=== PATIENT | female | born 1975 | race Caucasian/White ===

== ENCOUNTER → 2016-12-02 | Outpatient (CLI) | payer OTHER ==
[2016-12-02 11:10] LABS: Basophils # (A) 0.1 k/uL (0-0.2); Basophils % (A) 1 %; CH 32.6; CHCM 33.7; Eosinophils # (A) 0.2 k/uL (0-0.7); Eosinophils % (A) 3 %; HCT 42.8 % (34.0-46.0); HDW 2.39; HGB 14.2 gm/dL (11.4-16.0); Luc # (Auto) 0.11; Luc % (Auto) 2; Lymphocytes # (A) 1.8 k/uL (1.0-4.8); Lymphocytes % (A) 29 %; MCH 32.2 pg (25.0-35.0); MCHC 33.1 g/dL (31.0-37.0); MCV 97.2 fL (80.0-100.0); Mean Platelet Volume 6.7; Monocytes # (A) 0.4 k/uL (0-1.0); Monocytes % (A) 6 %; Neutrophils # (A) 3.7 k/uL (1.3-7.7); Neutrophils % (A) 59 %; RDW 13.7 % (11.5-15.5); WBC 6.3 k/uL (3.8-10.6); WBC (Perox) 6.56
[2016-12-02 11:25] LABS: Anion Gap 11 mmol/L; Blood Urea Nitrogen 6 mg/dL (7-17); Carbon Dioxide 22 mmol/L (22-30); Chloride 110 mmol/L (98-107); Glucose 96 mg/dL (74-99); Non-African American GFR(MDRD) >60 (>60 ml/min/1.73 sqM); Sodium 143 mmol/L (137-145)
== END | disposition home or self-care (01) ==
LOC: LABWHC1 10:24
PROVIDERS: ATTEND Orthopaedic Surgery
DX: Z01.812 Encounter for preprocedural laboratory examination (principal); D64.9 Anemia, unspecified
CPT/HCPCS: 36415; 80048; 85025

== ENCOUNTER 2017-03-23 16:37 | Emergency (ER) | payer OTHER ==
[2017-03-23 16:46] VITALS: BP 118/62; PULSE 79; RESP 20; TEMP 97.8
--- NOTE | 2017-03-23 16:57 | ED ---
ENT HPI - General Chief complaint: Dental/Oral Stated complaint: Oral Pain Time Seen by Provider: 03/23/17 16:54 Source: patient, RN notes reviewed Mode of arrival: ambulatory Limitations: no limitations - History of Present Illness Initial comments: 42-year-old female presents emergency Department chief complaint right lower dental pain. She states she has smuggling that she's been worse over the last few days. She states she noticed some swelling along her gumline. Patient denies fever, chills. She states that she has appointment with the dental clinic next month but states that she cannot tolerate the pain at this time. Patient denies any headache or dizziness. Denies any ear pain, sore throat. - Related Data Previous Rx's Medication Instructions Recorded Acetaminophen-Codeine 300-30mg 1 tab PO Q4H PRN #20 tablet 03/23/17 [Tylenol #3] Ibuprofen [Motrin] 600 mg PO Q8HR PRN #30 tab 03/23/17 Penicillin V Potassium [Pen Vee K] 500 mg PO QID #40 tab 03/23/17 Allergies Allergy/AdvReac Type Severity Reaction Status Date / Time duloxetine [From Cymbalta] AdvReac Abdominal Verified 03/23/17 16:53 Pain Review of Systems ROS Statement: Those systems with pertinent positive or pertinent negative responses have been documented in the HPI. ROS Other: All systems not noted in ROS Statement are negative. Past Medical History Past Medical History: Asthma Additional Past Medical History / Comment(s): back pain History of Any Multi-Drug Resistant Organisms: None Reported Past Surgical History: Section, Orthopedic Surgery Additional Past Surgical History / Comment(s): left knee, left shoulder Past Psychological History: No Psychological Hx Reported Smoking Status: Current every day smoker Past Alcohol Use History: None Reported Past Drug Use History: None Reported General Exam Limitations: no limitations General appearance: alert, in no apparent distress Head exam: Present: atraumatic, normocephalic, normal inspection Eye exam: Present: normal appearance, PERRL, EOMI. Absent: scleral icterus, conjunctival injection, periorbital swelling ENT exam: Present: mucous membranes moist, TM's normal bilaterally, normal external ear exam. Absent: normal oropharynx (Edentulous, mild swelling right lower gumline) Neck exam: Present: normal inspection, full ROM. Absent: tenderness, meningismus, lymphadenopathy Respiratory exam: Present: normal lung sounds bilaterally. Absent: respiratory distress, wheezes, rales, rhonchi, stridor Cardiovascular Exam: Present: regular rate, normal rhythm, normal heart sounds. Absent: systolic murmur, diastolic murmur, rubs, gallop, clicks Neurological exam: Present: alert, oriented X3, CN II-XII intact Skin exam: Present: warm, dry, intact, normal color. Absent: rash Course Vital Signs 03/23/17 16:44 Temperature 97.8 F Pulse Rate 79 Respiratory 20 Rate Blood Pressure 118/62 O2 Sat by Pulse 99 Oximetry Medical Decision Making - Medical Decision Making 42-year-old female presented for dental pain. Patient given pain medication, antibiotics she has a very small early abscess on drainable at this time. Patient follow-up with dental clinic and return parameters were discussed. Disposition Clinical Impression: Dental abscess, Toothache Disposition: HOME SELF-CARE Condition: Stable Instructions: Dental Abscess (ED) Additional Instructions: Please return to the Emergency Department if symptoms worsen or any other concerns. Prescriptions: Acetaminophen-Codeine 300-30mg [Tylenol #3] 1 tab PO Q4H PRN #20 tablet PRN Reason: pain Ibuprofen [Motrin] 600 mg PO Q8HR PRN #30 tab PRN Reason: Pain Penicillin V Potassium [Pen Vee K] 500 mg PO QID #40 tab Referrals: Junito Onofre MD [Primary Care Provider] - 1-2 days Time of Disposition: 16:56
== END 2017-03-23 17:12 | disposition home or self-care (01) ==
LOC: EC 16:37
DX: K04.7 Periapical abscess without sinus (principal); F17.200 Nicotine dependence, unspecified, uncomplicated; Z88.8 Allergy status to other drugs, medicaments and biological substances
CPT/HCPCS: 99282

== ENCOUNTER → 2017-05-21 | Outpatient (CLI) | payer OTHER ==
--- NOTE | 2017-05-21 23:33 | MR ---
EXAMINATION TYPE: MR lumbar spine wo con DATE OF EXAM: 05/21/2017 COMPARISON: 02/21/2015 HISTORY: low back pain x4 years TECHNIQUE: Multiplanar, multisequence images of the lumbar spine were acquired. The vertebra have normal alignment. There is some degenerative disc space narrowing at L4-5 and L5-S1 . There is posterior disc herniation at L3-4 and L4-5 in the spinal canal. There is developmentally a dequate spinal canal and no significant spinal stenosis. The visualized sacroiliac joints appear norm al. There is no paraspinal mass. There is no compression fracture. The lumbar neural foramina are genevieve rly well-maintained. IMPRESSION: Mild posterior disc herniations at L3-4 and L4-5. L4-5 herniation is smaller than old exam consistent with desiccation. L3-4 is unchanged. No spinal stenosis.
== END | disposition home or self-care (01) ==
LOC: RADMRIMAIN 20:20
PROVIDERS: ATTEND Psychiatry & Neurology Neurology
DX: M51.26 Other intervertebral disc displacement, lumbar region (principal)
CPT/HCPCS: 72148

== ENCOUNTER → 2017-06-25 | Outpatient (CLI) | payer OTHER ==
[2017-06-25 12:45] LABS: CH 32.7; CHCM 34.1; HCT 43.1 % (34.0-46.0); HDW 2.54; HGB 14.6 gm/dL (11.4-16.0); MCH 32.6 pg (25.0-35.0); MCHC 33.8 g/dL (31.0-37.0); MCV 96.3 fL (80.0-100.0); Mean Platelet Volume 7.2; RBC 4.47 m/uL (3.80-5.40); RDW 13.7 % (11.5-15.5); WBC 6.8 k/uL (3.8-10.6)
[2017-06-25 12:58] LABS: ALT 23 U/L (9-52); AST 14 U/L (14-36); Alkaline Phosphatase 63 U/L (38-126); Anion Gap 11 mmol/L; Blood Urea Nitrogen 9 mg/dL (7-17); Calcium 9.2 mg/dL (8.4-10.2); Carbon Dioxide 19 mmol/L (22-30); Chloride 113 mmol/L (98-107); Glucose 90 mg/dL (74-99); Non-African American GFR(MDRD) >60 (>60 ml/min/1.73 sqM); Potassium 3.7 mmol/L (3.5-5.1); Sodium 143 mmol/L (137-145); Total Bilirubin 0.4 mg/dL (0.2-1.3)
== END | disposition home or self-care (01) ==
LOC: LABWHC1 12:14
PROVIDERS: ATTEND Internal Medicine
DX: R12 Heartburn (principal); E04.2 Nontoxic multinodular goiter
CPT/HCPCS: 36415; 80053; 84443; 85027

== ENCOUNTER 2019-06-11 18:46 | Emergency (ER) | payer OTHER ==
[2019-06-11] MEDS ORDERED: IPRATROPIUM-ALBUTEROL 3 ML NEB INHALATION STA ×2 (20:17→22:18)
[2019-06-11] MEDS ORDERED: MAGNESIUM SULFATE-D5W PMX 1 GM in DEXTROSE/WATER 1 100ML.BAG IVPB ONE (20:20)
[2019-06-11] MEDS ORDERED: methylPREDNISolone SOD SUCCI 125 MG/2 ML VIAL IV STA (20:20)
[2019-06-11 21:11] LABS: Basophils # (A) 0.1 k/uL (0-0.2); Basophils % (A) 1 %; Eosinophils # (A) 0.9 k/uL (0-0.7); Eosinophils % (A) 9 %; HCT 46.5 % (34.0-46.0); HGB 15.9 gm/dL (11.4-16.0); Lymphocytes # (A) 2.7 k/uL (1.0-4.8); Lymphocytes % (A) 27 %; MCH 31.6 pg (25.0-35.0); MCHC 34.2 g/dL (31.0-37.0); MCV 92.5 fL (80.0-100.0); Mean Platelet Volume 6.8; Monocytes # (A) 0.6 k/uL (0-1.0); Monocytes % (A) 6 %; Neutrophils # (A) 5.5 k/uL (1.3-7.7); Neutrophils % (A) 55 %; Platelet Count 349 k/uL (150-450); RBC 5.03 m/uL (3.80-5.40); RDW 15.7 % (11.5-15.5)
[2019-06-11 21:19] LABS: ALT 15 U/L (9-52); AST 21 U/L (14-36); African American GFR (CKD) >90 (>60 ml/min/1.73 sqM); Albumin 4.3 g/dL (3.5-5.0); Alkaline Phosphatase 82 U/L (38-126); Anion Gap 10 mmol/L; Blood Urea Nitrogen 9 mg/dL (7-17); Calcium 9.3 mg/dL (8.4-10.2); Carbon Dioxide 22 mmol/L (22-30); Chloride 108 mmol/L (98-107); Glucose 81 mg/dL (74-99); Sodium 140 mmol/L (137-145); Total Bilirubin 0.2 mg/dL (0.2-1.3); Total Protein 7.5 g/dL (6.3-8.2)
--- NOTE | 2019-06-11 21:52 | XR ---
EXAMINATION TYPE: XR chest 2V DATE OF EXAM: 06/11/2019 COMPARISON: 08/23/2015 HISTORY: 44-year-old female difficulty breathing TECHNIQUE: PA and lateral views FINDINGS: The heart is normal size. Aorta and bony vasculature within normal limits. Strandy atelectasis left b ase. Interstitial prominence and streaky perihilar densities. No consolidation or pleural effusion se en. IMPRESSION: Correlate for possible bronchitis or asthma. Strandy left basilar atelectasis.
--- NOTE | 2019-06-11 22:24 | XR ---
EXAM: XR Right Wrist Complete, 3 or More Views CLINICAL HISTORY: ITS.REASON XR Reason: Pain TECHNIQUE: Frontal, lateral and oblique views of the right wrist. COMPARISON: No relevant prior studies available. FINDINGS: Bones/joints: Questionable cortical disruption of the ulnar styloid may suggest nondisplaced fracture.. Soft tissues: Unremarkable. No radiopaque foreign body. IMPRESSION: Questionable cortical disruption of the ulnar styloid may suggest nondisplaced fracture. Please correlate with mechanism of injury and location of pain
--- NOTE | 2019-06-11 23:10 | ED ---
SOB HPI - General Chief Complaint: Shortness of Breath Stated Complaint: Asthma Issues & Wrist Pain Time Seen by Provider: 06/11/19 19:00 Source: patient Mode of arrival: ambulatory Limitations: no limitations - History of Present Illness Initial Comments: The patient is a 44-year-old female with past history of asthma who presents to the emergency room with reported asthma exacerbation. She reports that she did have a roommate move into her home who wears heavy colognes. She also states that her boyfriend has been spraying insecticide inside their house. She has been using her nebulizer as directed however it is not helping her symptoms. Reports that she no longer has an inhaler at home. She has never been intubated for breathing. Never required hospital admission. She admits to a mild nonproductive cough. No fevers or chills. Denies hemoptysis. Denies any chest pain. The patient is unsure of status. She also reports to right wrist pain. States that she's previously fractured the wrist however over the past 2 weeks she's had worsening pain. States she has pain with supination or pronation. Denies any redness or swelling to the extremity. Denies any numbness or tingling. The patient did go into [facility]. She had an x-ray performed which was negative. The patient is still concerned because of her pain and therefore is requesting another x-ray. There are no other alleviating, precipitating or modifying factors - Related Data Home Medications Medication Instructions Recorded Confirmed ALPRAZolam [Xanax] 1 mg PO TID PRN 03/23/17 06/11/19 ARIPiprazole [Abilify] 10 mg PO DAILY 03/23/17 06/11/19 Methylphenidate HCl [Ritalin] 20 mg PO TID 03/23/17 06/11/19 QUEtiapine FUMARATE [SEROquel] 400 mg PO HS 03/23/17 06/11/19 lamoTRIgine [LaMICtal] 150 mg PO BID 06/11/19 06/11/19 Previous Rx's Medication Instructions Recorded Albuterol Nebulized [Ventolin 2.5 mg INHALATION Q4H PRN #25 nebu 06/11/19 Nebulized] Albuterol Sulfate [Proair Hfa] 1 - 2 puff INHALATION Q4HR PRN #1 06/11/19 inhaler predniSONE 20 mg PO BID #10 tab 06/11/19 Allergies Allergy/AdvReac Type Severity Reaction Status Date / Time duloxetine [From Cymbalta] AdvReac Abdominal Verified 06/11/19 19:52 Pain Review of Systems ROS Statement: Those systems with pertinent positive or pertinent negative responses have been documented in the HPI. ROS Other: All systems not noted in ROS Statement are negative. Past Medical History Past Medical History: Asthma Additional Past Medical History / Comment(s): back pain History of Any Multi-Drug Resistant Organisms: None Reported Past Surgical History: Section, Orthopedic Surgery Additional Past Surgical History / Comment(s): left knee, left shoulder Past Psychological History: No Psychological Hx Reported Smoking Status: Current every day smoker Past Alcohol Use History: None Reported Past Drug Use History: None Reported General Exam Limitations: no limitations General appearance: alert, in no apparent distress Head exam: Present: atraumatic, normocephalic, normal inspection Eye exam: Present: normal appearance, PERRL, EOMI. Absent: scleral icterus, conjunctival injection, periorbital swelling ENT exam: Present: normal exam, mucous membranes moist Neck exam: Present: normal inspection. Absent: tenderness, meningismus, lymphadenopathy Respiratory exam: Present: wheezes (mild wheeze at the bases). Absent: respiratory distress, rales, rhonchi, stridor, accessory muscle use, decreased breath sounds Cardiovascular Exam: Present: regular rate, normal rhythm, normal heart sounds. Absent: systolic murmur, diastolic murmur, rubs, gallop, clicks GI/Abdominal exam: Present: soft, normal bowel sounds. Absent: distended, tenderness, guarding, rebound, rigid Extremities exam: Present: tenderness (right ulnar surface. Intact median, radial, ulnar and AIN nerve innervated muscle groups. 2+ radial and ulnar pulses. Compartments are soft. Cap refill <3 seconds), normal capillary refill. Absent: pedal edema, joint swelling, calf tenderness Back exam: Present: normal inspection Neurological exam: Present: alert, oriented X3, CN II-XII intact Psychiatric exam: Present: normal affect, normal mood Skin exam: Present: warm, dry, intact, normal color. Absent: rash Course Vital Signs 06/11/19 06/11/19 06/11/19 18:59 20:33 20:39 Temperature 97.7 F Pulse Rate 88 88 88 Respiratory 22 Rate Blood Pressure 110/72 O2 Sat by Pulse 99 Oximetry 06/11/19 06/11/19 06/11/19 21:03 22:00 22:16 Temperature 97.9 F Pulse Rate 77 88 87 Respiratory 18 19 25 H Rate Blood Pressure 113/79 107/78 O2 Sat by Pulse 96 98 95 Oximetry 06/11/19 06/11/19 06/11/19 22:27 22:35 23:23 Temperature 97.7 F Pulse Rate 75 80 92 Respiratory 20 Rate Blood Pressure 110/88 O2 Sat by Pulse 95 Oximetry Medical Decision Making - Medical Decision Making Upon arrival the patient is placed into room 19. She is hooked up to continuous pulse ox and cardiac monitoring. The patient demonstrates wheezing at the lung bases. Respiratory was called and provided the patient with a DuoNeb breathing treatment. I recommended laboratory studies and a chest x-ray. The patient was reevaluated and still continues to have tachypnea. Because of this I did provide the patient with an additional DuoNeb breathing treatment. Peripheral IV had been established the patient was given 125 mg of Solu-Medrol and 1 g of magnesium. The patient does go over for an x-ray of the right wrist. He does demonstrate cortical disruption of the ulnar styloid nondisplaced fracture. As the patient is tender, I did recommend splint placement. The patient did agree to this. She was placed in an ulnar gutter splint. I did recommend that she follow up with Dr. Wolfe for reevaluation. She is to continue to rest, ice and elevate the extremity. No weightbearing. The patient does feel improved with her respirations at this time. She feels comfortable to go home. She will be given a prescription for albuterol for her nebulizer. She is also given a perception for an albuterol inhaler. She will be placed on steroids for the next 5 days. She will follow-up with her primary care doctor in 2-4 days. If she has any new or worsening symptoms she should return to the emergency room. She was discharged home in stable condition - Lab Data Result diagrams: 06/11/19 21:02 06/11/19 21:02 Lab Results 06/11/19 06/11/19 06/11/19 Range/Units 20:55 21:02 21:02 WBC 10.0 (3.8-10.6) k/uL RBC 5.03 (3.80-5.40) m/uL Hgb 15.9 (11.4-16.0) gm/dL Hct 46.5 H (34.0-46.0) % MCV 92.5 (80.0-100.0) fL MCH 31.6 (25.0-35.0) pg MCHC 34.2 (31.0-37.0) g/dL RDW 15.7 H (11.5-15.5) % Plt Count 349 (150-450) k/uL Neutrophils % 55 % Lymphocytes % 27 % Monocytes % 6 % Eosinophils % 9 % Basophils % 1 % Neutrophils # 5.5 (1.3-7.7) k/uL Lymphocytes # 2.7 (1.0-4.8) k/uL Monocytes # 0.6 (0-1.0) k/uL Eosinophils # 0.9 H (0-0.7) k/uL Basophils # 0.1 (0-0.2) k/uL Sodium 140 (137-145) mmol/L Potassium 4.0 (3.5-5.1) mmol/L Chloride 108 H (98-107) mmol/L Carbon Dioxide 22 (22-30) mmol/L Anion Gap 10 mmol/L BUN 9 (7-17) mg/dL Creatinine 0.73 (0.52-1.04) mg/dL Est GFR (CKD-EPI)AfAm >90 (>60 ml/min/1.73 sqM) Est GFR (CKD-EPI)NonAf >90 (>60 ml/min/1.73 sqM) Glucose 81 (74-99) mg/dL Calcium 9.3 (8.4-10.2) mg/dL Total Bilirubin 0.2 (0.2-1.3) mg/dL AST 21 (14-36) U/L ALT 15 (9-52) U/L Alkaline Phosphatase 82 (38-126) U/L Total Protein 7.5 (6.3-8.2) g/dL Albumin 4.3 (3.5-5.0) g/dL Urine HCG, Qual Not Detected (Not Detectd) - EKG Data EKG Comments: EKG demonstrates a normal sinus rhythm with a ventricular rate of 74. AL interval 116. QRS 78. QTC of 446. There are no acute ST segment elevations or depressions concerning for ischemic changes Disposition Clinical Impression: Wrist pain, right, Asthma exacerbation Disposition: HOME SELF-CARE Condition: Stable Instructions (If sedation given, give patient instructions): Asthma (ED), S uspected Fracture (ED) Additional Instructions: Please follow-up with your primary care doctor in 2-4 days for your asthma exacerbation. Follow-up with Dr. Wolfe regarding your right wrist fracture. Return to the ED for any new or worsening symptoms Prescriptions: predniSONE 20 mg PO BID #10 tab Albuterol Sulfate [Proair Hfa] 1 - 2 puff INHALATION Q4HR PRN #1 inhaler PRN Reason: difficulty in breathing Albuterol Nebulized [Ventolin Nebulized] 2.5 mg INHALATION Q4H PRN #25 nebu PRN Reason: difficulty in breathing Is patient prescribed a controlled substance at d/c from ED?: No Referrals: None,Stated [Primary Care Provider] - 1-2 days Zach Wolfe MD [STAFF PHYSICIAN] - 1-2 days Time of Disposition: 23:10
[2019-06-11 23:25] VITALS: BP 110/88; PULSE 92; RESP 20; TEMP 97.7
== END 2019-06-11 23:27 | disposition home or self-care (01) ==
LOC: EC 18:46
DX: J45.901 Unspecified asthma with (acute) exacerbation (principal); M25.531 Pain in right wrist; S52.614A Nondisplaced fracture of right ulna styloid process, initial encounter for closed fracture; F17.200 Nicotine dependence, unspecified, uncomplicated; Z88.8 Allergy status to other drugs, medicaments and biological substances; Z79.899 Other long term (current) drug therapy; X58.XXXA Exposure to other specified factors, initial encounter
CPT/HCPCS: 99285; 29125; 96365; 96375; 36415; 94640 ×2; 93005; 80053; 85025; 81025; 73110; 71046; J2930; J3475